=== PATIENT | female | born 1990 | race Two or more races ===

== ENCOUNTER 2018-11-26 21:09 | Emergency (ER) | payer OTHER ==
[~2018-11-26] VITALS: Ht 162.6 cm; Wt 59.0 kg
[2018-11-26 21:25] VITALS: BP 115/67
--- NOTE | 2018-11-26 21:42 | Emergency Room Report ---
History of Present Illness General Chief Complaint: Eye Problems Source: Patient Present Illness HPI This is a 28-year-old female with no past medical history. She presents with right eye redness and swelling. Onset this morning. She woke up her eye was injected and swollen of the lower lid. There was some crusting. It is better now. Itching. No nausea no vomiting. No fever chills. Denies any other complaint. No loss of vision. Allergies: Coded Allergies: No Known Allergies (Unverified , 11/26/18) Patient History Past Medical History: see triage record, old chart reviewed Past Surgical History: none Pertinent Family History: none Social History: Denies: smoking Last Menstrual Period: 10/28/18 Now: No Immunizations: other Reviewed Nursing Documentation: PMH: Agreed; PSxH: Agreed Nursing Documentation-PMH Past Medical History: No Stated History Review of Systems Eye: Reports: discharge; Denies: blurred vision ENT: Denies: ear pain, nose congestion, throat swelling Respiratory: Denies: cough, shortness of breath Cardiovascular: Denies: chest pain, palpitations Gastrointestinal: Denies: abdominal pain, diarrhea, nausea, vomiting Musculoskeletal: Denies: back pain, joint pain Skin: Denies: rash Neurological: Denies: headache, numbness Endocrine: Denies: increased thirst, increased urine Hematologic/Lymphatic: Denies: easy bruising All Other Systems: negative except mentioned in HPI Physical Exam Vital Signs Date Time Temp Pulse Resp B/P (MAP) Pulse Ox O2 Delivery O2 Flow Rate FiO2 11/26/18 21:14 98.4 71 18 115/67 (83) 98 Room Air Vitals normal Sp02 EP Interpretation: reviewed, normal General Appearance: well appearing, no apparent distress, alert Head: normocephalic, atraumatic Eyes: right eye other - mild injection of conjunctiva; bilateral eye PERRL, bilateral eye EOMI ENT: hearing grossly normal, normal pharynx Neck: full range of motion, supple, no meningismus Respiratory: chest non-tender, lungs clear, normal breath sounds Cardiovascular #1: regular rate, rhythm, no murmur Gastrointestinal: normal bowel sounds, non tender, no mass, no organomegaly, no bruit, non-distended Musculoskeletal: back normal, gait/station normal, normal range of motion Psychiatric: mood/affect normal Medical Decision Making Diagnostic Impression: Primary Impression: Conjunctivitis Qualified Codes: H10.31 - Unspecified acute conjunctivitis, right eye ER Course Patient with conjunctivitis. No evidence of foreign body. Will discharge home. Last Vital Signs Date Time Temp Pulse Resp B/P (MAP) Pulse Ox O2 Delivery O2 Flow Rate FiO2 11/26/18 21:14 98.4 71 18 115/67 (83) 98 Room Air Status: unchanged Disposition: HOME, SELF-CARE Condition: Stable Scripts Polymyxin/Trimethoprim (Polytrim Eye Drops) 10 Ml Drops 2 DROP OPHTHALM THREE TIMES A DAY, #1 EA Instill in affected eye for 7 days Prov: Tylor Edge MD 11/26/18 Patient Instructions: Bacterial Conjunctivitis, [id number] Additional Instructions: Follow-up with your doctor in 7 days. Return if symptoms worsen. Hold off contacts until completely better. Tylor Edge MD Nov 26, 2018 21:42
[2018-11-26] MEDS ORDERED: POLYTRIM OP SOL10 ML OPHTHALM (21:45)
[2018-11-26 21:55] VITALS: BP 115/67
--- NOTE | 2018-11-26 21:55 | NUR ---
ER DISCHARGE NOTE: Patient is cleared to be discharged per ERMD, pt is aox4, on room air, with stable vital signs. pt was given dc and prescription instructions, pt was able to verbalize understanding, pt id band removed without complications. pt is able to ambulate with steady gait. pt took all belongings.
== END 2018-11-26 21:55 | disposition home or self-care (01) ==
LOC: EMR 21:48
DX: H10.31 Unspecified acute conjunctivitis, right eye (principal)
CPT/HCPCS: 99282